=== PATIENT | female | born 1945 | race Caucasian/White ===

== ENCOUNTER 2018-04-01 09:55 | Emergency (ER) | payer OTHER, MEDICAID ==
[~2018-04-01] VITALS: Ht 154.9 cm; Wt 68.0 kg
[~2018-04-01 09:55] MED LIST: ASPIR 8181 MG PO; CARVEDILOL6.25 M1 PO; GLUCOTROL5 MG PO; LOV40I SC; METFORMIN HCL1000 MG PO; OMEPRAZOLE40 M1 PO; SIMVASTATIN80 M1 PO; ZESTRIL5 MG PO
[2018-04-01 10:11] VITALS: BP 143/56; Ht 154.9 cm; Wt 68.0 kg
== END 2018-04-01 10:53 | disposition home or self-care (01) ==
LOC: ED 09:55
DX: R04.0 Epistaxis (principal); I10 Essential (primary) hypertension; E11.9 Type 2 diabetes mellitus without complications; E78.00 Pure hypercholesterolemia, unspecified